=== PATIENT | female | born 1970 | race African-American/Black ===

== ENCOUNTER 2022-07-24 21:50 | Emergency (ER) | payer OTHER, SELFPAY ==
[2022-07-24] MEDS ORDERED: Ketorolac Tromethamine 30 MG/ML VIAL ONE (22:34)
[2022-07-24] MEDS ORDERED: Ibuprofen 200 MG TAB ONE (22:41)
== END 2022-07-24 22:48 | disposition home or self-care (01) ==
LOC: CSHERS 21:50
DX: M54.31 Sciatica, right side (principal); I10 Essential (primary) hypertension; E11.9 Type 2 diabetes mellitus without complications; W01.0XXA Fall on same level from slipping, tripping and stumbling without subsequent striking against object, initial encounter; Z79.84 Long term (current) use of oral hypoglycemic drugs
CPT/HCPCS: 99283; J1885